=== PATIENT | male | born 1990 | race Caucasian/White ===

== ENCOUNTER 2022-11-30 19:40 | Emergency (ER) | payer OTHER ==
[~2022-11-30] VITALS: Ht 177.8 cm; Wt 108.0 kg
[2022-11-30] MEDS ORDERED: BACTRIM DS TAB1 EACH PO (20:22)
== END 2022-11-30 20:35 | disposition home or self-care (01) ==
LOC: ED 19:40
DX: L02.413 Cutaneous abscess of right upper limb (principal); Z88.1 Allergy status to other antibiotic agents
CPT/HCPCS: 99282; A9270